=== PATIENT | male | born 1955 | race Caucasian/White ===

== ENCOUNTER 2017-01-26 09:35 | Emergency (ER) | payer OTHER ==
[~2017-01-26] VITALS: Ht 185.4 cm; Wt 104.3 kg
[2017-01-26] MEDS ORDERED: NKM (09:51)
[2017-01-26] MEDS ORDERED: Bacitracin Oint UD TOPIC ONE (11:09)
[2017-01-26] MEDS ORDERED: KEFLEX500 MG ORAL (11:14)
[2017-01-26] MEDS ORDERED: IBUPROFEN600 MG ORAL (11:14)
[2017-01-26] MEDS ORDERED: TdaP Vaccine 0.5ml Syr IM ONE (11:15)
[2017-01-26 11:54] VITALS: BP 144/82
--- NOTE | 2017-01-29 21:48 | Emergency Room Report ---
History of Present Illness General Chief Complaint: Laceration Source: Patient Present Illness HPI Patient present with complaints of laceration to the right hand Patient's laceration essentially involves the thenar eminence patient reports that he was opening a glass bottle When he lacerated the area Pain is 6/10 Sharp localized to the region Denies any other elbow pain denies any other trauma Pain is worse with touch Patient is unknown regarding his last tetanus shot Allergies: Coded Allergies: No Known Allergies (Unverified , 01/26/17) Patient History Past Medical History: see triage record Pertinent Family History: none Reviewed Nursing Documentation: PMH: Agreed, PSxH: Agreed Review of Systems All Other Systems: negative except mentioned in HPI Physical Exam Vital Signs Date Time Temp Pulse Resp B/P Pulse Ox O2 Delivery O2 Flow Rate FiO2 01/26/17 09:47 97.9 67 16 106/78 95 Room Air Sp02 EP Interpretation: reviewed, normal General Appearance: well appearing, no apparent distress Head: normocephalic, atraumatic Eyes: bilateral eye EOMI, bilateral eye PERRL ENT: hearing grossly normal, normal pharynx, TMs + canals normal, uvula midline Neck: full range of motion, supple, no meningismus, no bony tend Respiratory: lungs clear, normal breath sounds, no rhonchi, no respiratory distress, no retraction, no accessory muscle use Cardiovascular #1: normal peripheral pulses, regular rate, rhythm, no edema, no gallop, no JVD, no murmur Musculoskeletal: other - Patient has laceration approximately 6 cm involving the thenar eminence, patient is able to approximate his thumb to all fingers, is able to perform thumbs up and has sensory intact Neurologic: alert, oriented x3, responsive Skin: other - As above Lymphatic: no adenopathy Procedures Splinting Splinting : Consent: Verbal Pre-Made Type: velcro Splint: volar Pre-Proc Neuro Vasc Exam: normal Post-Proc Neuro Vasc Exam: normal Patient Tolerated: Well Complications: None Progress right hand Laceration/Wound Repair Progress Area was cleansed and irrigated Total of 6 mL 1% lidocaine was used for local sedation After this further high-pressure saline wash that was performed Laceration appears to be 6 cm Total of 9 5.0 monofilament sutures were used in an interrupted fashion with good approximation Patient tolerated the procedure well Area was dressed and prepped Medical Decision Making Diagnostic Impression: Primary Impression: Laceration ER Course Patient had laceration repair as noted above Was provided with antibiotics and tetanus shot At this time stable for close outpatient followup Last Vital Signs Date Time Temp Pulse Resp B/P Pulse Ox O2 Delivery O2 Flow Rate FiO2 01/26/17 11:54 97.3 57 17 144/82 98 Room Air Status: improved Disposition: HOME, SELF-CARE Condition: Improved Scripts Ibuprofen* (MOTRIN*) 600 Mg Tablet 600 MG ORAL Q8H Y for For Pain, #30 TAB 0 Refills Prov: EFREM TURNER D.O. 01/26/17 Cephalexin* (KEFLEX*) 500 Mg Capsule 500 MG ORAL Q6H, #28 CAP 0 Refills Prov: EFREM TURNER D.O. 01/26/17 Referrals: NOT CHOSEN IPA/MD,REFERRING Patient Instructions: Laceration Care, Adult Additional Instructions: Patient is provided with the discharge instructions notified to follow up with primary doctor in the next 2-3 days otherwise return to the er with any worsening symptoms. Please note that this report is being documented using [employer] technology. This can lead to erroneous entry secondary to incorrect interpretation by the dictating instrument. EFREM TURNER D.O. Jan 29, 2017 21:48
== END 2017-01-26 11:54 | disposition home or self-care (01) ==
LOC: EMR 11:00
DX: S61.411A Laceration without foreign body of right hand, initial encounter (principal); Z23 Encounter for immunization; W25.XXXA Contact with sharp glass, initial encounter; Y93.9 Activity, unspecified; Y92.9 Unspecified place or not applicable
CPT/HCPCS: 90471; 90715

== ENCOUNTER → 2018-05-13 | Emergency (ER) | payer OTHER ==
[~2018-05-13] VITALS: Ht 185.4 cm; Wt 106.6 kg
[~2018-05-13] MED LIST: BACTRIM DS TAB1 EAC1 ORAL; Bacitracin Oint UD TOPIC ONE; CEPHALEXIN500 MG ORAL; IBUPROFEN600 MG ORAL; KEFLEX500 MG ORAL; NKM; Tetanus/Diptheria/Pertussis Vaccine 0.5ml Syr IM ONE
[2018-05-13 18:21] VITALS: BP 138/79
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
== END | disposition home or self-care (01) ==
LOC: EMR 18:42
DX: S51.831A Puncture wound without foreign body of right forearm, initial encounter (principal); W26.9XXA Contact with unspecified sharp object(s), initial encounter; Y93.E9 Activity, other interior property and clothing maintenance; Y92.008 Other place in unspecified non-institutional (private) residence as the place of occurrence of the external cause; Z23 Encounter for immunization
CPT/HCPCS: 90471; 90715; 99284